=== PATIENT | male | born 1960 | race African-American/Black ===

== ENCOUNTER 2016-11-06 16:59 | Inpatient (IN) ==
[2016-11-06] MEDS ORDERED: IBUPROFEN 800 MG TABLET PO STA (17:35)
--- NOTE | 2016-11-06 17:36 | Emergency Department Note ---
Arrival - Arrival Chief Complaint: Upper Respiratory Stated Complaint: Coughing,fever,congestion with thick greenish mucu ED Nursing Triage Note: C/o productive cough, runny nose, congestion, subjective fever-onset one week ago. Unsure of how high fever was. Mode of Arrival: Ambulatory Limitations: No Limitations Source: Patient, RN Notes Reviewed Time Seen by Provider: 11/06/16 17:34 - History of Present Illness HPI Narrative: History of Present Illness 55-year-old black male presents to ED with CC of URI symptoms x 2 weeks. Symptoms present: Fever; subjective, temp in triage 99.9, cough, runny nose, congestion, pleuritic type pain, and shortness of breath with exertion, O2 sat 95% in triage Able to tolerate fluids by mouth: Yes PCP: None PMHx: None Allergies/Adverse Reactions: Allergies Allergy/AdvReac Type Severity Reaction Status Date / Time No Known Allergies Allergy Verified 11/06/16 17:10 Home Medications: Home Medications Medication Instructions Recorded Confirmed Type No Known Home Medications [No 11/06/16 11/06/16 History Known Home Medications] Review of System - Review of System 12 point system: reviewed and no additional remarkable complaints except as stated - Review of System Head/Ears/Nose/Throat: Present: see HPI, nasal drainage, other Respiratory: Present: as per HPI, cough, other (Short of breath with exertion) Cardiovascular: Present: as per HPI, chest pain (Lower right ribs) Medical,Surgical,& Family Hx - Medical History Medical History: noncontributory - Social History Smoking Status: Former smoker Frequency of Alcohol Use: None Type of Drug Use: None Exam Physical Examination: - General General appearance: alert, in no apparent distress - Head Head exam: Present: atraumatic, normocephalic, normal inspection - Eye Eye exam: Present: normal appearance, PERRL, no conjunctival injection - ENT ENT exam: Present: mucous membranes moist - Expanded ENT Exam External ear exam: Present: normal external inspection TM/Canal exam: no erythema: Right/Left TM Nose exam: no sinus tenderness, no nasal drainage. Negative: nasal deviation Mouth exam: Present: normal external inspection Teeth exam: Present: normal inspection, Throat exam: Present: tonsillar erythema. Absent: Tonsillar exudate - Neck Neck exam: Present: normal inspection, full ROM, no lymphadenopathy. Absent: tenderness, meningismus - Chest Chest inspection: Present: normal inspection, symmetric chest wall rise, area of pleuritic pain nontender to palpation - Respiratory Respiratory exam: Breath sounds decreased in right upper lobe, Scattered rales. Absent: respiratory distress, wheezes - Cardiovascular Cardiovascular exam: Present: regular rate, normal rhythm, normal heart sounds - Neurological Exam Neurological exam: Present: alert, oriented X3 - Psychiatric Psychiatric exam: Present: normal affect, normal mood - Skin Skin exam: Present: warm, dry, intact Vital Signs: Vital Signs Temperature 98.8 F 11/07/16 00:00 Pulse Rate 70 11/07/16 00:00 Respiratory Rate 21 11/07/16 00:00 Blood Pressure 111/72 11/07/16 00:00 O2 Sat by Pulse Oximetry 90 L 11/07/16 00:00 Course - Reevaluation(s) Time: 18:30 (O2 Sat 88% on room air at rest. Oxygen applied @2L BNC.) Time: 19:00 (CXR results given to patient and girlfriend. Plan for hospitalist to assess for possible admission given.) - Consultations Time: 18:45 (Hospitalist service notified of pt presence and status. ) Time: 19:15 (Dr. Martinez here to evaluate patient. Further orders received. ) Time: 19:50 (Dr. Martinez returned to see patient. Will admit.) Procedures - Smoking Cessation Time Spent Discussing Smoking Cessation w/Patient (Minutes): 00:10 (Pt encouraged to continue smoking cessation.) Patient Acknowledges Need for Cessation: Yes Additional Comments: 80pack year smoking history. Results - Labs CBC & BMP: 11/06/16 19:06 11/06/16 19:06 Lab Results: I have reviewed the patients labs Labs: Laboratory Tests 11/06/16 19:06 AST 33 ALT 19 Alkaline Phosphatase 71 Total Protein 7.8 Albumin 3.1 L Globulin 4.7 H Laboratory Tests 11/06/16 19:06 Total Creatine Kinase 529 H Troponin I < 0.015 Laboratory Tests 11/06/16 19:06 ABG pH 7.437 ABG pCO2 36.5 ABG pO2 58.5 L ABG HCO3 24.1 ABG Total CO2 25.2 ABG O2 Saturation 92.0 L ABG Base Excess 0.3 - Impressions CXR: Extensive bullous emphysema with air-fluid levels within several of the findings in the mid to lower right mid-lower lung zone. This finding could be related possible infected bulla, lung abscess, cavitary masses, etc. Asymmetric 37 mm noncalcified subpleural nodular density in the lateral right midlung zone. Follow-up chest x-ray or CT may be helpful for further evaluation. CT Chest: Extensive paraseptal emphysema with complex right loculated pleural effusion or fluid in the bullous findings extending from the right lung apex to the right lateral mid chest location. This finding can be seen with infectious process/empyema with additional significant infiltration, honeycombing, bronchiectasis, and atelectasis in the right upper lobe and right middle lobe. Evidence of old healed granulomatous disease with possible superimposed active granulomatous disease. It is difficult to exclude underlying masses with the extensive findings. Renal cysts. Follow-up recommended. - Diagnostic Findings Procedure: Chest x-ray: report reviewed by me, image reviewed by me (See Impression above.), CT - chest: report reviewed by me, image reviewed by me Disposition Clinical Impression: Bullous emphysema, Shortness of breath Case discussed with: patient, patient's family Disposition: Still a Patient Condition: Stable Time of Disposition: 19:50
[2016-11-06] MEDS ORDERED: IBUPROFEN 400 MG TABLET ONE (17:38)
--- NOTE | 2016-11-06 18:28 | XRay Report ---
XR chest 2V Date: 11/06/2016 5:42 PM History: Cough Comparison: None Technique: PA and lateral chest Findings: The heart is normal in size. Evidence of extensive bullous emphysema especially in the right lung. There are air-fluid levels within several findings in the mid to lower lung zone. Increased density at the level of right hilum and laterally in the right midlung zone. Localized eventration of the left hemidiaphragm. Degenerative changes noted. Impression: Extensive bullous emphysema with air-fluid levels within several of the findings in the mid to lower right mid-lower lung zone. This finding could be related possible infected bulla, lung abscess, cavitary masses, etc. Asymmetric 37 mm noncalcified subpleural nodular density in the lateral right midlung zone. Follow-up chest x-ray or CT may be helpful for further evaluation. PROCEDURE INTERPRETED AT [facility] DEPARTMENT OF RADIOLOGY Final Report Signed by: Dr. Natalee Scruggs
[2016-11-06 19:23] LABS: Basophils # 0.1 10*3/uL (0.0-0.2); Eosinophils # 0.3 10*3/uL (0.0-0.87); Eosinophils % 2.3 % (0.00-10.9); Hematocrit 43.5 VOL% (42.0-52.0); Hemoglobin 14.8 GM/DL (14.0-18.0); Immature Granulocytes % 0.3 %; Immature Granulocytes Absolute 0.04 #; Lymphocytes # 2.7 10*3/uL (1.4-4.0); Lymphocytes % 22.2 % (21.2-54.2); Mean Corpuscular Hemoglobin 28 PG (27-34); Mean Corpuscular Volume 82.2 FL (87-102); Mean Platelet Volume 9.1 FL (9.6-12.0); Monocytes % 8.5 % (1.7-12.7); Neutrophils # 8.1 10*3/uL (1.4-7.4); Neutrophils % 65.7 % (38.7-73.9); Platelet Count 324 T/CUMM (130-400); Red Blood Count 5.29 MC/CUMM (3.8-5.5); Red Cell Distribution Width 12.9 % (9.3-17.3); White Blood Count 12.3 T/CUMM (4-12)
[2016-11-06 19:45] LABS: Lactic Acid 0.6 MMOL/L (0.4-2.0)
[2016-11-06 19:47] LABS: Alanine Aminotransferase 19 U/L (16-61); Albumin 3.1 G/DL (3.4-5.0); Alkaline Phosphatase 71 U/L (45-117); Aspartate Amino Transferase 33 U/L (0-37); Blood Urea Nitrogen 10 MG/DL (7-18); Calcium 8.8 MG/DL (8.5-10.1); Glucose 103 MG/DL (74-106); Potassium 3.9 MMOL/L (3.5-5.1); Sodium 136 MMOL/L (136-145); Total Protein 7.8 G/DL (6.4-8.3); Troponin I Only < 0.015 NG/ML (0.00-0.045)
--- NOTE | 2016-11-06 20:06 | Hospitalist History & Physical ---
Assessment and Plan (1) Bullous emphysema Status: Acute Assessment and plan: The patient is admitted hospital with abnormal chest x-ray. The patient will start on INH and rifampin and have respiratory precautions and the negative pressure room. We will obtain pulmonary consultation and CT scan of chest. Current Visit: Yes History of Present Illness Chief complaint: Cough and pleurisy History of present illness: Mr. Galvez is a 55 year old male with complaint of pleurisy on the right anterior chest. The patient has complained of cough and congestion with minimum sputum production. The patient was incarcerated as a youthful offender. He was not told about tuberculosis at that time. The patient's mother states that the mother was treated for tuberculosis 18 months ago and took pills for 6 months at the health department. She states that the patient was likely infected at that time but did not take appropriate medications. The patient states that he was diagnosed with tuberculosis at the age of 15 or 16 and took medication at that time. The patient's history does not appear to be reliable. The story he tells changes from one telling to the next. Home Medications Medication Instructions Recorded Confirmed Type No Known Home Medications [No 11/06/16 11/06/16 History Known Home Medications] Allergies Allergy/AdvReac Type Severity Reaction Status Date / Time No Known Allergies Allergy Verified 11/06/16 17:10 Medical,Surgical,& Family Hx - Medical History Respiratory: History of: COPD - Family History Family History: Reports;: Family Hypertension - Social History Smoking Status: Former smoker Frequency of Alcohol Use: None Type of Drug Use: None Marital Status: Single Lives With:: Significant Other Functional capacity: independent ambulation 12 point system: reviewed and no additional remarkable complaints except as stated Exam - Constitutional Vitals: Period Temp Pulse Resp BP Sys/Bright Pulse Ox Last 24 Hr 99.9 F 93 20-20 113/76 95 Exam: Constitutional System: Mild distress. No tremulousness. Head: Normocephalic, atraumatic. Ears, Nose and Throat System: No evidence of Otitis or Mastoiditis. No epistaxis or discharge Eyes System: Pupils equal, round, and reactive. Extraocular muscles intact. Neck: Supple, without adenopathy, No jugular venous distention. No thyromegaly , neck mass, or prior surgery apparent. Respiratory System: Chest decreased lung sounds right upper lobe with few rhonchi right anterior mid to lower lung to auscultation. There is air trapping on both sides Cardiovascular System: Heart with regular rate and rhythm. No murmur. GI System: Abdomen soft, nontender. Normo active bowel sounds present. Musculoskeletal System: limbs with no pedal edema. Full distal pulses. Neurological System: No discernable sensory deficit. No aphasia Psychiatric System: Conversation is rational Results - Labs CBC & BMP: 11/06/16 19:06 11/06/16 19:06 Lab Results: I have reviewed the past 24 hour labs - Diagnostic Findings Procedure: Chest x-ray: image reviewed by me, report reviewed by me (Bullous emphysema worse on the right with some air-fluid level in 1 of the bullae in the right mid lung field with fluid in the fissure leading to the area of the right anterior chest where the patient has pleurisy.)
[2016-11-06 20:33] LABS: ABG Base Excess 0.3 MMOL/L (-2.5-2.5); ABG HCO3 24.1 MMOL/L (20-26); ABG PCO2 36.5 MM HG (35-48); ABG PH 7.437 (7.35-7.45); ABG PO2 58.5 MM HG (80-95); ABG TCO2 25.2 MMOL/L (23-27)
--- NOTE | 2016-11-06 20:44 | CT Report ---
Exam: CT chest w con Date: 11/06/2016 7:28 PM Comparison: Chest x-ray 11/06/2016 Indication: Cough, abnormal chest x-ray Technique:[Sequential axial scans of the chest were obtained following the injection of 80 cc Omnipaque 350. Coronal and sagittal 2-D reconstructions were obtained. Total DLP: 212.10 Findings: The heart is normal in size with no pericardial effusion. Minimal shift of the mediastinum to the right with mediastinal right hilar nodes which are borderline in size to minimally enlarged. Calcified nodes are identified. Renal cysts are noted with incomplete evaluation of 52 mm finding in the midpole of the left kidney. Degenerative changes are noted. Extensive paraseptal emphysema the findings are more prominent on the right. There is associated loculated appearing fluid posterior laterally in the right upper lobe location with minimal air within this finding. The finding measures 32 mm in depth at the right lung apex. Atelectasis/infiltration with honeycombing and bronchiectasis which appears most pronounced in the right upper lobe and right middle lobe. Impression: Extensive paraseptal emphysema with complex right loculated pleural effusion or fluid in the bullous findings extending from the right lung apex to the right lateral mid chest location. This finding can be seen with infectious process/empyema with additional significant infiltration, honeycombing, bronchiectasis, and atelectasis in the right upper lobe and right middle lobe. Evidence of old healed granulomatous disease with possible superimposed active granulomatous disease. It is difficult to exclude underlying masses with the extensive findings. Renal cysts. Follow-up recommended. This CT exam was performed using one or more the following dose reduction techniques: Automated exposure control, adjustment of the MA and/or KV according to patient size, or use of iterative reconstruction technique. PROCEDURE INTERPRETED AT [facility] DEPARTMENT OF RADIOLOGY Final Report Signed by: Dr. Natalee Scruggs
[2016-11-06] MEDS ORDERED: ONDANSETRON 4 MG/2 ML VIAL IV PRN (21:02)
[2016-11-06] MEDS: ISONIAZID 300 MG TABLET PO SCH (21:55)
[2016-11-06] MEDS: RIFAMPIN 300 MG CAPSULE PO SCH (21:55)
[2016-11-06] MEDS: ENOXAPARIN 40 MG/0.4 ML SYRINGE SUBCUT SCH (21:55)
--- NOTE | 2016-11-07 06:38 | EKG Report ---
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
--- NOTE | 2016-11-07 08:46 | Pulmonology Consult Note ---
History of Present Illness Chief complaint: Chest pain. Shortness of breath. Abnormal chest x-ray History of present illness: Mr. Galvez is a 55 year old black male whom I been asked to see in pulmonary consultation. This patient is admitted with right chest pain. This was over his lower ribs in the anterior axillary line he says he has had some shortness of breath. When asked if he had any sputum he grudgingly said yes but he has not looked at this. When I asked him if he had any fever and chills he should his head vigorously said yes. It was hard to get any real details and I am not sure this patient is straightforward with me. See Dr. Martinez's history. This patient was incarcerated as a youthful offender. He was not told of having any tuberculosis at that time. His mother had tuberculosis 18 months ago and took pills for 6 months from the health department and she implied that the patient refused to take the pills. The mother upon that the patient was infected at the time she took the medicine. Patient also told Dr. Martinez that he was diagnosed with tuberculosis at age 15 or 16 and took medicines at that time. Dr. Martinez noted that the patient's history was not reliable and that what he told was changed from 1 minute to the next. The patient apparently is a in another city. His girlfriend was told the nursing staff not to give the patient any pain medicines because he has a history of addiction pain medicine. The remainder the review of systems which is unreliable is not positive. Allergies. None Home medicines. None. Medical history. Possible past history of tuberculosis. See review of systems. Social history. Patient is a smoker who says he quit 4 months ago. He denied alcohol. 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 Said he last worked about 4 weeks ago for [employer] Family history. Positive for high blood pressure Chest x-ray. My interpretation. Heart size is normal. Pulmonary arteries are upper limits of normal. There is calcification in the right hilar area and to a lesser degree in the left hilar area. These calcifications appear to be benign. The mediastinum is normal. The left lung field shows calcification with interstitial scarring surrounding the left hilum. This appears to be old and active disease. In the right lung there is a huge right upper lung bullous that occupies about 55% of the right chest. There is an air-fluid level in the inferior aspect of this thin-walled bolus. The air-fluid level is located anteriorly. There is another large thin-walled cystic area in the right middle lung with an air-fluid level. 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 No bony lesions are noted. CT scan of the chest (my interpretation) shows extensive bullous disease in the left lung occupying well over 50% of the lung. In the right lung there is dense apical scarring that extends posteriorly for distance. This has the appearance of fluid but is not fluid. Greater than 70% of the right lung is involved with bullous emphysema. There is an infiltrate in the right middle lung. This abuts against the bulla and gives a appearance of all small amount of fluid. There is a second infiltrate and a thin wall bolus in the lateral aspect of the left lower lung. No endobronchial lesions are seen and I do not see any parenchymal lesions to suggest cancer. Lab. White count is 12,300 with 66 segs 22 lymphs. H&H is 14.8/43.5. Electrolytes are normal. Creatinine is 1.1. BUN is 10. Creatinine is elevated 529. Total protein is 7.8. Albumin is low at 3.1. Globulin is elevated at 4.7. Liver function tests are normal. Calcium is normal. Lactic acid is normal. No other lab is available. Labs been reviewed. Physical exam. Vital signs. See below. Highest temp is been 99.9. Psychiatric. Oriented 3. Has a history that varies in time Neurologic. Cranial nerves are intact. Patient moves all 4 extremities. Face. Symmetrical. Lips and tongue are not swollen. Neck. No meningismus. Chest. Very slight large airway congestion. No wheezing. Patient is tender over the seventh eighth and ninth ribs on the right in the anterior axillary line. This reproduces her chest pain that he complains of. Heart no gallop Fingers. Clubbed. Patient says they have always been that way in this way his father's fingers look. Lower extremities. No edema. Nothing to suggest deep venous thrombophlebitis. Lymphatics. No submandibular cervical supraclavicular adenopathy. The remainder the physical exam is noncontributory. Impression. 1. Severe bullous emphysema. 2. 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 This is just as likely to be bacteria as tuberculosis. Patient gives a history of having tuberculosis as a teenager and taking treatment for it. 3. Tobacco abuse 4. History of drug abuse according to girlfriend 5. 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 Possibly on the basis of hypoxic lung disease Plan. 1. Levaquin. 2. Cleocin. 3. Induced sputum's for AFB. See orders 4. Sputum for Gram stain culture and sensitivity 5. Sputum for fungal stains and cultures. Look for aspergillosis. 6. Pro-calcitonin level. 7. Inhalation therapy 8. I agree with TB medicines 9. Follow-up lab and chest x-ray. 10. Discontinue QuantiFERON. This will not be helpful. 11. Dr. Martinez and I have discussed and reviewed the case and coordinated our care. 12. See orders. Home Medications Medication Instructions Recorded Confirmed Type No Known Home Medications [No 11/06/16 11/06/16 History Known Home Medications] Allergies Allergy/AdvReac Type Severity Reaction Status Date / Time No Known Allergies Allergy Verified 11/06/16 17:10 Exam (Pulmonay) H&P - Constitutional Vitals: Period Temp Pulse Resp BP Sys/Bright Pulse Ox Last 24 Hr 98.6 F-99.9 F 70-93 16-25 110-121/68-81 90-95 Medical,Surgical,& Family Hx - Medical History Respiratory: History of: COPD Genitourinary: History of: Problems (urinary retention) - Surgical History Cardiac Surgeries: Patient Denies: Cardiac Catheterization Abdominal Surgeries: Surgical HX of: Appendectomy - Family History Family History: Reports;: Family Hypertension - Social History Smoking Status: Former smoker Frequency of Alcohol Use: None Type of Drug Use: None Results - Labs CBC & BMP: 11/06/16 19:06 11/06/16 19:06
[2016-11-07] MEDS ORDERED: SODIUM CHLORIDE 0.45% 1,000 ML IV SCH (09:00)
[2016-11-07] MEDS: RIFAMPIN 300 MG CAPSULE PO SCH ×2 (09:05→21:04)
[2016-11-07] MEDS: PANTOPRAZOLE 40 MG TABLET PO SCH (09:05)
[2016-11-07] MEDS: ISONIAZID 300 MG TABLET PO SCH (09:07)
[2016-11-07] MEDS: DICLOFENAC 1.3% PATCH 5/PACK TRANSDERM SCH ×2 (09:53→21:03)
[2016-11-07] MEDS: CLINDAMYCIN INJ 300 MG in PREMIX 1 EACH IV SCH ×3 (11:12→22:51)
[2016-11-07] MEDS: LEVOFLOXACIN INJ 500 MG in PREMIX 1 EACH IV SCH (11:43)
[2016-11-07] MEDS: SODIUM CHLORIDE 3% 4 ML NEB RESP TX SCH ×2 (14:10→19:15)
[2016-11-07] MEDS: ACETAMINOPHEN 325 MG TABLET PO PRN (14:12)
--- NOTE | 2016-11-07 14:36 | Hospitalist Progress Note ---
Assessment and Plan (1) Bullous emphysema Status: Acute Assessment and plan: The patient is admitted hospital with abnormal chest x-ray. The patient was prescribed INH and rifampin and we began respiratory precautions and the negative pressure room. Dr. Clement has been consulted and recommended IV antibiotics with clindamycin and Levaquin. Dr. Clement has requested induce sputum testing for TB. CT scan of chest reveals bullous emphysema with some cavitation. Etiology of the patient's lung infection is uncertain at this time. Current Visit: Yes Hospitalist: Subjective Interval history: Mr. Galvez is resting quietly in his room today. He has less cough today. The patient has less discomfort in the right chest. I coordinated care with Dr. Clement. Exam - Constitutional Vitals: Period Temp Pulse Resp BP Sys/Bright Pulse Ox Last 24 Hr 98.6 F-100.0 F 70-93 16-25 110-121/68-81 90-95 Exam: Constitutional System: Minimal distress. No tremulousness. Head: Normocephalic, atraumatic. Ears, Nose and Throat System: No evidence of Otitis or Mastoiditis. No epistaxis or discharge Eyes System: Pupils equal, round, and reactive. Extraocular muscles intact. Neck: Supple, without adenopathy, No jugular venous distention. No thyromegaly , neck mass, or prior surgery apparent. Respiratory System: Chest decreased lung sounds right upper lobe with few rhonchi right anterior mid to lower lung to auscultation. There is air trapping on both sides Cardiovascular System: Heart with regular rate and rhythm. No murmur. GI System: Abdomen soft, nontender. Normo active bowel sounds present. Musculoskeletal System: limbs with no pedal edema. Full distal pulses. Neurological System: No discernable sensory deficit. No aphasia Psychiatric System: Conversation is rational Results - Labs CBC & BMP: 11/06/16 19:06 11/06/16 19:06 Lab Results: I have reviewed the past 24 hour labs
[2016-11-07] MEDS: ENOXAPARIN 40 MG/0.4 ML SYRINGE SUBCUT SCH (21:04)
[2016-11-08] MEDS: ACETAMINOPHEN 325 MG TABLET PO PRN (01:42)
[2016-11-08] MEDS: CLINDAMYCIN INJ 300 MG in PREMIX 1 EACH IV SCH ×4 (05:16→22:09)
--- NOTE | 2016-11-08 08:15 | XRay Report ---
History: Bullous emphysema. Chronic coughing Date: 11/08/2016 Study: Chest x-ray AP portable Comparison exam: November 06, 2016 The cardiomediastinal silhouette is stable. The pulmonary vasculature is not engorged. Severe emphysematous changes are noted in the upper lungs, right more so than left. There is some continued asymmetric patchy infiltrate in the right mid to lower lung more medially. The fluid level noted in the mid to lower right hemithorax is not seen on today's study. There is no increasing pleural effusion. Osseous structures are unchanged. Impression: Continued infiltrate in the right mid to lower lung, presumably pneumonia. The fluid level noted in the right mid to lower hemithorax is no longer seen. Prominent emphysematous changes as before PROCEDURE INTERPRETED AT [facility] DEPARTMENT OF RADIOLOGY Final Report Signed by: Dr. Karin Warner
[2016-11-08] MEDS ORDERED: ALBUTEROL/IPRATROPIUM 3 ML NEB RESP TX PRN (08:41)
--- NOTE | 2016-11-08 08:41 | Pulmonology Progress Note ---
Pulmonary - PN: Subj Interval history: Is a 55-year-old black male whom I saw in pulmonary consultation 11/07/2016. My impressions were. 1. Severe bullous emphysema. 2. 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 This is just as likely to be bacteria as tuberculosis. Patient gives a history of having tuberculosis as a teenager and taking treatment for it. 3. Tobacco abuse 4. History of drug abuse according to girlfriend 5. 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 Possibly on the basis of hypoxic lung disease 11/08/2016. Sputum for AFB and fungus are negative. Gram stain showed no organisms which surprises me. Today's chest x-ray is the same. There is a huge right upper lung bullous to compresses her right middle lung and right lower lung. There are infiltrates surrounding the bullae with thin faustin and a small air-fluid level in the right middle lung and also in the medial basal segment of the right lower lung. The left lung shows some mild increase interstitial markings in the perihilar area these are not infiltrates in her old scars. Labs been reviewed Medicines been reviewed Physical exam. Vital signs. See below Psychiatric. Not a reliable historian. Neurologic. Cranial nerves are intact. Long track motor functions intact Chest. Mild large airway congestion. No wheeze. Heart. No gallop Abdomen nondistended nontender positive bowel sounds Extremities none to suggest deep venous thrombophlebitis next lymphatics no submandibular cervical supraclavicular or epitrochlear adenopathy next neck. Symmetrical no meningismus Face symmetrical. No swelling of the lips and tongue. The remainder the exam is negative Plan. 11/07/2016 1. Levaquin. 2. Cleocin. 3. Induced sputum's for AFB. See orders 4. Sputum for Gram stain culture and sensitivity 5. Sputum for fungal stains and cultures. Look for aspergillosis. 6. Pro-calcitonin level. 7. Inhalation therapy 8. I agree with TB medicines 9. Follow-up lab and chest x-ray. 10. Discontinue QuantiFERON. This will not be helpful. 11. Dr. Martinez and I have discussed and reviewed the case and coordinated our care. 12. See orders. 11/08/2016. 1. See my note above. 2. Continue present therapy. I suspect this is going to returning officer to be a bacterial infection. Exam (Progress Note) - Constitutional Vitals: Period Temp Pulse Resp BP Sys/Bright Pulse Ox Last 24 Hr 98.7 F-100.0 F 73-101 15-27 103-127/59-88 88-95 Results - Labs CBC & BMP: 11/06/16 19:06 11/06/16 19:06
[2016-11-08] MEDS: SODIUM CHLORIDE 3% 4 ML NEB RESP TX SCH (08:45)
[2016-11-08] MEDS: cefTRIAXone 1,000 MG in SODIUM CHLORIDE 0.9% 100 ML IV SCH (08:55)
[2016-11-08] MEDS: RIFAMPIN 300 MG CAPSULE PO SCH ×2 (08:55→20:28)
[2016-11-08] MEDS: PANTOPRAZOLE 40 MG TABLET PO SCH (08:55)
[2016-11-08] MEDS: ISONIAZID 300 MG TABLET PO SCH (08:55)
[2016-11-08] MEDS: DICLOFENAC 1.3% PATCH 5/PACK TRANSDERM SCH ×2 (08:56→20:28)
--- NOTE | 2016-11-08 09:12 | Hospitalist Progress Note ---
Assessment and Plan (1) Bullous emphysema Status: Chronic Current Visit: Yes (2) Shortness of breath Status: Acute Assessment and plan: Continue with broad-spectrum antibiotics. As needed nebulized treatments. Sputum cultures Current Visit: Yes (3) Hypoxia Status: Acute Assessment and plan: Continue with neb treatments. Nasal cannula 3 L. Current Visit: Yes (4) Tobacco use Status: Chronic Assessment and plan: Patient recently stopped 4 months ago Current Visit: Yes Hospitalist: Subjective Interval history: The patient is resting visiting with his girlfriend. Did have a low-grade temperature last night. No fevers this morning. He remains on broad-spectrum antibiotics. Family is requesting a urinalysis as well as neb treatments. Of note the patient has a history of tobacco use but stopped smoking approximately 4 months ago. He remains on nasal cannula with sats of approximately 92%. His initial sputum cultures are negative. He still has 2 other cultures that are pending. Exam - Constitutional Vitals: Period Temp Pulse Resp BP Sys/Bright Pulse Ox Last 24 Hr 98.7 F-100.0 F 73-101 15-27 103-127/59-88 88-95 General appearance: normal weight - Head Head exam: Present: normal inspection - ENT ENT exam: Present: normal exam - Respiratory Respiratory exam: Present: clear to auscultation bilaterally - Cardiovascular Cardiovascular exam: Present: regular rate and rhythm - GI/Abdominal GI/Abdominal exam: Present: normal bowel sounds - Extremities Exam Extremities exam: Present: other (Clubbing noted on the digits) - Neurological Exam Neurological exam: Present: alert, oriented X3 - Psychiatric Psychiatric exam: Present: normal affect, normal mood - Skin Skin exam: Present: normal color Results - Labs CBC & BMP: 11/06/16 19:06 11/06/16 19:06
[2016-11-08] MEDS: LEVOFLOXACIN INJ 500 MG in PREMIX 1 EACH IV SCH (09:37)
[2016-11-08 10:03] LABS: Apearance,Urine CLEAR (Clear); Bilirubin,Urine Negative (Negative); Blood, Urine Negative (Negative); Glucose,Urine (UA) Negative (Negative); Ketones,Urine Negative (Negative); Mucus,Urine Occasional /LPF (Occasional); Nitrite,Urine Negative (Negative); Protein,Urine Negative; RBC,Urine 2 /HPF (0-4); Squamous Epithelial Cell,Urine Occasional /HPF (0-10); Urine Color Amber (Yellow); Urine Specific Gravity 1.008 (1.001-1.035); WBC,Urine 14 /HPF (0-6)
[2016-11-08] MEDS: ENOXAPARIN 40 MG/0.4 ML SYRINGE SUBCUT SCH (20:28)
[2016-11-08] MEDS: ZALEPLON 5 MG CAPSULE PO PRN (22:09)
[2016-11-09 03:15] LABS: Basophils # 0.2 10*3/uL (0.0-0.2); Basophils % 1.2 % (0.0-0.8); Eosinophils # 0.4 10*3/uL (0.0-0.87); Eosinophils % 3.5 % (0.00-10.9); Hematocrit 44.9 VOL% (42.0-52.0); Hemoglobin 15.1 GM/DL (14.0-18.0); Immature Granulocytes % 0.6 %; Immature Granulocytes Absolute 0.08 #; Lymphocytes # 2.9 10*3/uL (1.4-4.0); Lymphocytes % 22.7 % (21.2-54.2); Mean Corpuscular HGB Conc 33.6 GM/DL (32-36); Mean Corpuscular Hemoglobin 28 PG (27-34); Mean Corpuscular Volume 82.7 FL (87-102); Mean Platelet Volume 9.3 FL (9.6-12.0); Neutrophils # 8.1 10*3/uL (1.4-7.4); Platelet Count 384 T/CUMM (130-400); Red Blood Count 5.43 MC/CUMM (3.8-5.5); White Blood Count 12.6 T/CUMM (4-12)
[2016-11-09] MEDS: CLINDAMYCIN INJ 300 MG in PREMIX 1 EACH IV SCH ×4 (05:42→23:33)
--- NOTE | 2016-11-09 08:13 | Hospitalist Progress Note ---
Assessment and Plan (1) Bullous emphysema Status: Chronic Current Visit: Yes (2) Shortness of breath Status: Acute Assessment and plan: History of pneumonia. Hypoxia has improved. On no oxygen therapy at this time sats are 91%. We will transfer to the floor. Current Visit: Yes (3) Hypoxia Status: Resolved Assessment and plan: This issue has resolved. He is on no oxygen therapy with sats of 91%. Continue with neb treatments. Current Visit: Yes (4) Tobacco use Status: Chronic Assessment and plan: Patient recently stopped 4 months ago Current Visit: Yes (5) Pneumonia Status: Acute Assessment and plan: Continue with broad-spectrum antibiotics for this patient. He does not require oxygen therapy at this time. AFB stains have been negative. Patient does have evidence of emphysematous changes by x-ray and CT scan. Current Visit: Yes Hospitalist: Subjective Interval history: The patient is resting comfortably. He is now off oxygen therapy and sats about 90-91%. He has had 3 negative AFB sputum cultures. No fevers or chills. He has been hemodynamically stable. On yesterday at the request of the family members he had a urinalysis that showed small leuk esterase. He is on antibiotics for coverage. His white count has been 12.6 over the last 2 days[address] Have discussed with Dr. Matias regarding isolation status and we both agree that with 3 negative AFBs we will be able to take patient off isolation and be able to transfer him to the floor. Since admission patient has also had a CT of the chest that shows paraseptal emphysematous changes and healed granuloma changes. His follow-up chest x-ray is stable. And again follow-up cultures have been negative. COPD. Patient with a history of tobacco use stop smoking approximately 4 to half months ago. Pneumonia on broad-spectrum antibiotics. At this time he is off oxygen therapy. Sats are 90%. Urinary tract infection is on broad-spectrum antibiotics. Hemodynamically stable. We will transfer to the floor. Exam - Constitutional Vitals: Period Temp Pulse Resp BP Sys/Bright Pulse Ox Last 24 Hr 98.5 F-99.2 F 75-97 14-24 96-139/64-88 91-95 General appearance: normal weight - Head Head exam: Present: normal inspection - Eye Eye exam: Present: conjunctival injection - ENT ENT exam: Present: normal exam - Neck Neck exam: Present: normal inspection - Respiratory Respiratory exam: Present: clear to auscultation bilaterally - Cardiovascular Cardiovascular exam: Present: regular rate and rhythm - GI/Abdominal GI/Abdominal exam: Present: normal bowel sounds - Extremities Exam Extremities exam: Present: normal inspection - Neurological Exam Neurological exam: Present: alert, oriented X3, CN II-XII intact - Skin Skin exam: Present: normal color, warm Results - Labs CBC & BMP: 11/09/16 02:33 11/06/16 19:06
[2016-11-09] MEDS: ISONIAZID 300 MG TABLET PO SCH (08:18)
[2016-11-09] MEDS: RIFAMPIN 300 MG CAPSULE PO SCH (08:18)
[2016-11-09] MEDS: PANTOPRAZOLE 40 MG TABLET PO SCH (08:18)
[2016-11-09] MEDS: DICLOFENAC 1.3% PATCH 5/PACK TRANSDERM SCH ×2 (08:30→23:25)
[2016-11-09] MEDS: cefTRIAXone 1,000 MG in SODIUM CHLORIDE 0.9% 100 ML IV SCH (08:31)
--- NOTE | 2016-11-09 09:27 | XRay Report ---
History: Bullous emphysema Date: 11/09/2016 Study: Chest x-ray AP portable Comparison exam: 11/08/2016 The cardiomediastinal silhouette is stable. The pulmonary vasculature is not engorged. Prominent changes of bullous emphysema are noted in the mid to upper lungs bilaterally as before, right more so than left. Infiltrate in the right mid to lower lung medially is slightly improved. There is slightly increased patchy infiltrate in the left lung base. There is no pleural effusion. Osseous structures are similar. Impression: Slightly improved aeration in the right lung base compared to the previous study. Slightly increased left basilar infiltrate which could represent pneumonia. Prominent changes of bullous emphysema. Otherwise unchanged PROCEDURE INTERPRETED AT [facility] DEPARTMENT OF RADIOLOGY Final Report Signed by: Dr. Karin Warner
[2016-11-09] MEDS: LEVOFLOXACIN INJ 500 MG in PREMIX 1 EACH IV SCH (09:47)
--- NOTE | 2016-11-09 11:57 | Pulmonology Progress Note ---
Pulmonary - PN: Subj Interval history: Is a 55-year-old black male whom I saw in pulmonary consultation 11/07/2016. My impressions were. 1. Severe bullous emphysema. 2. 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 This is just as likely to be bacteria as tuberculosis. Patient gives a history of having tuberculosis as a teenager and taking treatment for it. 3. Tobacco abuse 4. History of drug abuse according to girlfriend 5. 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 Possibly on the basis of hypoxic lung disease 11/08/2016. Sputum for AFB and fungus are negative. Gram stain showed no organisms which surprises me. Today's chest x-ray is the same. There is a huge right upper lung bullous to compresses her right middle lung and right lower lung. There are infiltrates surrounding the bullae with thin faustin and a small air-fluid level in the right middle lung and also in the medial basal segment of the right lower lung. The left lung shows some mild increase interstitial markings in the perihilar area these are not infiltrates in her old scars. 11/09/2016. Today's chest x-ray is better. Previously noted right-sided infiltrates are better. I do not see any air-fluid levels. There is infiltration or scarring inferior to the left hilum and this is unchanged. There are multiple areas of calcification mixed in with this and I think most all of this is a scar. There is severe underlying bullous emphysema bilaterally but this is most prominent in the right upper lung. Overall this x- ray has improved. All of patient's sputum's are negative for acid-fast organisms. There have been no positive bacterial results. The patient did did grow some Sabina. This is not a Sabina pneumonia. White blood cell count is 12,664 segs 23 lymphs [address] Wood Gomez and I have reviewed the case and we both think the patient is safe to move to the floor. We will however seek confirmation from the infectious disease control nurse. I think the patient's antituberculous medicines can be stopped. I think this man will be ready for discharge in the near future. He has improved on Levaquin and Cleocin so I would suggest that we leave him on Levaquin 500 mg daily for 2 weeks and Cleocin 300 mg p.o. 3 times daily for 3 weeks when he goes home. He will not need a follow-up appointment to see me. Cold agglutinins are negative. Legionella titer has not been reported. Labs been reviewed Medicines been reviewed Physical exam. Vital signs. See below Psychiatric. Not a reliable historian. Neurologic. Cranial nerves are intact. Long track motor functions intact Chest. Mild large airway congestion. No wheeze. Heart. No gallop Abdomen nondistended nontender positive bowel sounds Extremities none to suggest deep venous thrombophlebitis next lymphatics no submandibular cervical supraclavicular or epitrochlear adenopathy next neck. Symmetrical no meningismus Face symmetrical. No swelling of the lips and tongue. The remainder the exam is negative Plan. 11/07/2016 1. Levaquin. 2. Cleocin. 3. Induced sputum's for AFB. See orders 4. Sputum for Gram stain culture and sensitivity 5. Sputum for fungal stains and cultures. Look for aspergillosis. 6. Pro-calcitonin level. 7. Inhalation therapy 8. I agree with TB medicines 9. Follow-up lab and chest x-ray. 10. Discontinue QuantiFERON. This will not be helpful. 11. Dr. Martinez and I have discussed and reviewed the case and coordinated our care. 12. See orders. 11/08/2016. 1. See my note above. 2. Continue present therapy. 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 11/09/2016. 1. See my note above. 2. Discontinue INH 3. Discontinue rifampin 4. Should be ready for discharge in the near future. Suggest Levaquin 500 mg daily for 14 days and Cleocin 300 mg p.o. 3 times daily for 14 days. 5. This patient does not need a follow-up appointment to see me Exam (Progress Note) - Constitutional Vitals: Period Temp Pulse Resp BP Sys/Bright Pulse Ox Last 24 Hr 98.5 F-99.2 F 75-97 18-24 96-139/64-91 90-95 Results - Labs CBC & BMP: 11/09/16 02:33 11/06/16 19:06
[2016-11-09] MEDS ORDERED: KETOROLAC 15 MG/1 ML VIAL IV PRN (18:35)
[2016-11-09] MEDS: ENOXAPARIN 40 MG/0.4 ML SYRINGE SUBCUT SCH (23:26)
[2016-11-09] MEDS: ZALEPLON 5 MG CAPSULE PO PRN (23:26)
[2016-11-10 05:22] LABS: Basophils # 0.2 10*3/uL (0.0-0.2); Basophils % 1.6 % (0.0-0.8); Eosinophils # 0.6 10*3/uL (0.0-0.87); Eosinophils % 5.3 % (0.00-10.9); Hematocrit 43.5 VOL% (42.0-52.0); Hemoglobin 14.4 GM/DL (14.0-18.0); Immature Granulocytes % 0.6 %; Immature Granulocytes Absolute 0.07 #; Lymphocytes # 2.7 10*3/uL (1.4-4.0); Lymphocytes % 23.8 % (21.2-54.2); Mean Corpuscular HGB Conc 33.1 GM/DL (32-36); Mean Corpuscular Hemoglobin 27 PG (27-34); Mean Corpuscular Volume 82.2 FL (87-102); Mean Platelet Volume 8.9 FL (9.6-12.0); Monocytes # 0.8 10*3/uL (0.11-0.8); Monocytes % 7.3 % (1.7-12.7); Neutrophils % 61.4 % (38.7-73.9); Platelet Count 385 T/CUMM (130-400); Red Blood Count 5.29 MC/CUMM (3.8-5.5); Red Cell Distribution Width 13.2 % (9.3-17.3); White Blood Count 11.4 T/CUMM (4-12)
[2016-11-10] MEDS: CLINDAMYCIN INJ 300 MG in PREMIX 1 EACH IV SCH ×2 (05:45→11:41)
--- NOTE | 2016-11-10 07:13 | Pulmonology Progress Note ---
Pulmonary - PN: Subj Interval history: Is a 55-year-old black male whom I saw in pulmonary consultation 11/07/2016. My impressions were. 1. Severe bullous emphysema. 2. 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 This is just as likely to be bacteria as tuberculosis. Patient gives a history of having tuberculosis as a teenager and taking treatment for it. 3. Tobacco abuse 4. History of drug abuse according to girlfriend 5. 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 Possibly on the basis of hypoxic lung disease 11/08/2016. Sputum for AFB and fungus are negative. Gram stain showed no organisms which surprises me. Today's chest x-ray is the same. There is a huge right upper lung bullous to compresses her right middle lung and right lower lung. There are infiltrates surrounding the bullae with thin faustin and a small air-fluid level in the right middle lung and also in the medial basal segment of the right lower lung. The left lung shows some mild increase interstitial markings in the perihilar area these are not infiltrates in her old scars. 11/09/2016. Today's chest x-ray is better. Previously noted right-sided infiltrates are better. I do not see any air-fluid levels. There is infiltration or scarring inferior to the left hilum and this is unchanged. There are multiple areas of calcification mixed in with this and I think most all of this is a scar. There is severe underlying bullous emphysema bilaterally but this is most prominent in the right upper lung. Overall this x- ray has improved. All of patient's sputum's are negative for acid-fast organisms. There have been no positive bacterial results. The patient did did grow some Sabina. This is not a Sabina pneumonia. White blood cell count is 12,664 segs 23 lymphs [address] Wood Gomez and I have reviewed the case and we both think the patient is safe to move to the floor. We will however seek confirmation from the infectious disease control nurse. I think the patient's antituberculous medicines can be stopped. I think this man will be ready for discharge in the near future. He has improved on Levaquin and Cleocin so I would suggest that we leave him on Levaquin 500 mg daily for 2 weeks and Cleocin 300 mg p.o. 3 times daily for 3 weeks when he goes home. He will not need a follow-up appointment to see me. Cold agglutinins are negative. Legionella titer has not been reported. 11/10/2016. This patient is doing fine his chest x-ray shows his infiltrates have resolved. He has no positive cultures for bacteria or AFB. I see nothing to make me think this is tuberculosis. I think we had infections with small air -fluid levels in his thin-walled bullae that are related to his emphysematous lung disease. See my note 11/09/2016 concerning my suggestions for discharge antibiotics. I think this patient could be discharged today from my standpoint. As I pointed out before he does not need a follow-up appointment to see me. I will sign off. Reconsult whenever in Labs been reviewed Medicines been reviewed Physical exam. Vital signs. See below Psychiatric. Not a reliable historian. Neurologic. Cranial nerves are intact. Long track motor functions intact Chest. Mild large airway congestion has resolved. No wheeze. Heart. No gallop Abdomen nondistended nontender positive bowel sounds Extremities none to suggest deep venous thrombophlebitis next lymphatics no submandibular cervical supraclavicular or epitrochlear adenopathy next neck. Symmetrical no meningismus Face symmetrical. No swelling of the lips and tongue. The remainder the exam is negative Plan. 11/07/2016 1. Levaquin. 2. Cleocin. 3. Induced sputum's for AFB. See orders 4. Sputum for Gram stain culture and sensitivity 5. Sputum for fungal stains and cultures. Look for aspergillosis. 6. Pro-calcitonin level. 7. Inhalation therapy 8. I agree with TB medicines 9. Follow-up lab and chest x-ray. 10. Discontinue QuantiFERON. This will not be helpful. 11. Dr. Martinez and I have discussed and reviewed the case and coordinated our care. 12. See orders. 11/08/2016. 1. See my note above. 2. Continue present therapy. I suspect this is going to insole lip turner to be a bacterial infection. 11/09/2016. 1. See my note above. 2. Discontinue INH 3. Discontinue rifampin 4. Should be ready for discharge in the near future. Suggest Levaquin 500 mg daily for 14 days and Cleocin 300 mg p.o. 3 times daily for 14 days. 5. This patient does not need a follow-up appointment to see me 11/10/2016. 1. See today's note above. 2. Okay to discharge from pulmonary standpoint 3. I will sign off. Reconsult when needed. 4. This patient does not need a follow-up appointment to see me Exam (Progress Note) - Constitutional Vitals: Period Temp Pulse Resp BP Sys/Bright Pulse Ox Last 24 Hr 97.4 F-98.2 F 74-95 18-23 101-124/63-88 93-97 Results - Labs CBC & BMP: 11/10/16 04:56 11/06/16 19:06
--- NOTE | 2016-11-10 07:43 | XRay Report ---
XR chest 1V portable Indication: Bullous emphysema. Comparison: Chest x-ray 11/27/2016 Technique: Portable AP chest was performed. Findings: The appearance of the right lung suggests little change from comparison study with lucency in the right lung apex compatible with large apical bullous disease. Paraseptal bulla additionally are suggested in the left lateral lung and parenchymal opacities in the mid to lower chest bilaterally remain present with little suggestive change. The chest is otherwise stable. Impression: 1. No adverse interval change in the chest is suggested. 11/10/2016 7:39 AM PROCEDURE INTERPRETED AT [facility] DEPARTMENT OF RADIOLOGY Final Report Signed by: Dr. Krishna Bhagat
[2016-11-10 08:16] VITALS: BP 127/79
[2016-11-10] MEDS: PANTOPRAZOLE 40 MG TABLET PO SCH (09:07)
[2016-11-10] MEDS: cefTRIAXone 1,000 MG in SODIUM CHLORIDE 0.9% 100 ML IV SCH (09:07)
--- NOTE | 2016-11-10 09:46 | Discharge Summary ---
Hospital Course - Hospital Course Hospital Course: This hospitalization included patient admitted for shortness of breath and cough. He had a chest x-ray as well as a CT of the chest that showed some chronic emphysematous changes as well as some granulomatous changes. It was at that time the patient was put in TB isolation and had 3 negative AFB stains. Moreover pulmonary was consulted for pneumonia recommended continued broad- spectrum antibiotics. The patient continued to improve. Oxygenation improved. He was able to be transferred to a regular floor. He was at that time that his TB medications were stopped. He was continued on his antibiotics for his pneumonia that would be needed for the next 3 weeks. The rest of his hospitalization is unremarkable. He has reached maximal hospitalization is prepared for discharge. He will follow with pulmonary in approximately 3 weeks. - Time spent with patient Time with patient DS: Greater than 30 minutes (35 minutes) Diagnosis - Discharge Diagnosis (1) Bullous emphysema Status: Chronic (2) Shortness of breath Status: Acute (3) Hypoxia Status: Resolved (4) Tobacco use Status: Chronic (5) Pneumonia Status: Acute Specialty Discharge - Follow Up or Referrals Follow up with: Delmer Matias MD [Physician] - Discharge Plan - Discharge Data Disposition: Disch To Home/Self Care Condition at Discharge: Stable Discharge Diet: advance to your usual diet Activity: resume usual activities as tolerated Contact your physician if you experience:: fever over 101 - Discharge Medications New Clindamycin Cap [Cleocin Cap] 300 mg PO Q6HR #84 capsule Levofloxacin Tab [Levaquin Tab] 500 mg PO DAILY #21 tablet Pantoprazole Tab [Protonix Tab] 40 mg PO DAILY #30 tablet Albuterol Inhaler [Proventil Inhaler] 2 puff INH Q4H PRN #1 inhaler PRN Reason: Shortness Of Breath/Wheezing - Follow Up or Referral Follow Up: Jerardo Montero MD [Physician] - - Forms/Instructions Additional Discharge Instructions: Follow with Dr. Montero on November 19. Follow with her primary provider in 1-2 weeks. Exam - Constitutional Vitals: Period Temp Pulse Resp BP Sys/Bright Pulse Ox Last 24 Hr 97.4 F-98.5 F 74-86 18-22 101-127/63-79 94-97 General appearance: normal weight - Head Head exam: Present: normal inspection - Eye Eye exam: Present: EOMI - ENT ENT exam: Present: normal exam - Neck Neck exam: Present: normal inspection - Respiratory Respiratory exam: Present: clear to auscultation bilaterally - Cardiovascular Cardiovascular exam: Present: regular rate and rhythm - GI/Abdominal GI/Abdominal exam: Present: normal bowel sounds - Extremities Exam Extremities exam: Present: normal inspection - Back Exam Back exam: Present: normal inspection - Neurological Exam Neurological exam: Present: alert, oriented X3, CN II-XII intact - Psychiatric Psychiatric exam: Present: normal affect - Skin Skin exam: Present: normal color Discharge Results Procedures and tests throughout hospitalization: Pending Orders 11/07/16 09:45 Legionella Ag, Urine Routine 11/07/16 10:18 Procalcitonin, S Routine 11/07/16 10:29 AFB Culture/Smears Routine Fungal Culture w/ Prep Routine Sputum Culture and Gram Stain Routine 11/07/16 15:28 Blood Culture Stat 11/07/16 17:54 AFB Culture/Smears Routine 11/08/16 08:20 AFB Culture/Smears Routine 11/09/16 09:53 AFB Culture/Smears Stat Labs on day of discharge: Labs from last 24 hours 11/10/16 04:56 WBC 11.4 RBC 5.29 Hgb 14.4 Hct 43.5 MCV 82.2 L MCH 27 MCHC 33.1 RDW 13.2 Plt Count 385 MPV 8.9 L Neut % (Auto) 61.4 Lymph % (Auto) 23.8 Webb % (Auto) 7.3 Eos % (Auto) 5.3 Baso % (Auto) 1.6 H Neut # (Auto) 7.0 Lymph # (Auto) 2.7 Webb # (Auto) 0.8 Eos # (Auto) 0.6 Baso # (Auto) 0.2 Immature Gran % 0.6 Nucleated RBC % 0.0 Immature Gran # 0.07 Nucleated RBCs # 0.00 Preliminary micro results at discharge 11/09/16 09:53 Direct Acid Fast Bacilli Smear - Preliminary Sputum - Expectorated No acid fast bacilli seen 11/07/16 10:29 Sputum Culture - Preliminary Sputum Yeast 11/07/16 15:28 Blood Culture - Preliminary Blood No growth at 1 day 11/07/16 15:28 Blood Culture - Preliminary Blood No growth at 1 day 11/08/16 08:20 Direct Acid Fast Bacilli Smear - Preliminary Sputum - Expectorated No acid fast bacilli seen 11/07/16 17:54 Direct Acid Fast Bacilli Smear - Preliminary Sputum - Expectorated No acid fast bacilli seen DS: Provider Date of admission: 11/06/16 19:56 Primary care physician: . Mariann PCP Attending physician on admission: Joe Martinez MD Consults: 11/06/16 21:02 Consult to Case Mgmt/Social Srvs [CONS] Routine Reason for Case Mgmt/Social Srvs: Other Consult Comment: requests info on advanced directive Consult to Dietitian [CONS] Routine Reason for Dietitian: Dietary Consult Consult to Physician [CONS] Routine Comment: pneumonia, bullae, ?TB Consulting Provider: Delmer Matias Discharging clinician: Wood Reina Jr., MD
[2016-11-10] MEDS: DICLOFENAC 1.3% PATCH 5/PACK TRANSDERM SCH (10:37)
[2016-11-10] MEDS: LEVOFLOXACIN INJ 500 MG in PREMIX 1 EACH IV SCH (10:37)
== END 2016-11-10 12:02 | disposition home or self-care (01) | DRG 190 ==
LOC: N.ED 16:59 → SUATTDRO 19:56 → N.ICU 19:56 → N.5E 11-09 12:39
PROVIDERS: ADMIT Internal Medicine; ATTEND Internal Medicine Nephrology

== ENCOUNTER 2018-07-28 11:36 | Inpatient (IN) ==
[2018-07-28 13:01] LABS: Basophils # 0.1 10*3/uL (0.0-0.2); Eosinophils # 0.1 10*3/uL (0.0-0.87); Eosinophils % 1.5 % (0.00-10.9); Hematocrit 49.3 VOL% (42.0-52.0); Hemoglobin 15.9 GM/DL (14.0-18.0); Immature Granulocytes % 0.6 %; Immature Granulocytes Absolute 0.05 #; Lymphocytes # 1.8 10*3/uL (1.4-4.0); Lymphocytes % 20.2 % (21.2-54.2); Mean Corpuscular HGB Conc 32.3 GM/DL (32-36); Mean Corpuscular Hemoglobin 27 PG (27-34); Monocytes # 0.9 10*3/uL (0.11-0.8); Monocytes % 9.8 % (1.7-12.7); Neutrophils # 6.1 10*3/uL (1.4-7.4); Neutrophils % 66.9 % (38.7-73.9); Platelet Count 236 T/CUMM (130-400); Red Cell Distribution Width 13.7 % (9.3-17.3); White Blood Count 9.1 T/CUMM (4-12)
[2018-07-28 13:05] LABS: PT Patient Result 11.3 SECS
[2018-07-28 13:08] LABS: Alanine Aminotransferase 21 U/L (16-61); Albumin 3.3 G/DL (3.4-5.0); Alkaline Phosphatase 74 U/L (45-117); Aspartate Amino Transferase 21 U/L (0-37); Blood Urea Nitrogen 8 MG/DL (7-18); Calcium 8.4 MG/DL (8.5-10.1); Glucose 116 MG/DL (74-106); Osmolality,Calculated 271.8 MOS/KG (273-304); Potassium 3.1 MMOL/L (3.5-5.1); Sodium 137 MMOL/L (136-145); Total Protein 8.3 G/DL (6.4-8.3)
[2018-07-28 13:46] LABS: Apearance,Urine CLEAR (Clear); Bilirubin,Urine Negative (Negative); Blood, Urine Negative (Negative); Glucose,Urine (UA) Negative (Negative); Ketones,Urine Negative (Negative); Mucus,Urine Occasional /LPF (Occasional); Nitrite,Urine Negative (Negative); Protein,Urine Negative; RBC,Urine 3 /HPF (0-4); Squamous Epithelial Cell,Urine Occasional /HPF (0-10); Urine Color Yellow (Yellow); Urine Specific Gravity 1.009 (1.001-1.035); WBC,Urine 7 /HPF (0-6)
[2018-07-28] MEDS ORDERED: ACETAMINOPHEN 325 MG TABLET PO PRN (15:15)
[2018-07-28] MEDS ORDERED: LABETALOL 20 MG/4 ML SYRINGE IV PRN (15:18)
[2018-07-28] MEDS ORDERED: ALBUTEROL 2.5 MG/3 ML NEB RESP TX PRN (15:25)
[2018-07-28] MEDS ORDERED: ALBUTEROL/IPRATROPIUM 3 ML NEB RESP TX PRN (15:26)
[2018-07-28] MEDS ORDERED: SODIUM CHLORIDE 0.9% 1,000 ML IV SCH (15:30)
[2018-07-28 16:14] LABS: Barbiturates Screen,Urine Negative (Negative); Benzodiazepines Screen,Urine Negative (Negative); Cannabinoid Screen,Urine Negative (Negative); Opiate Screen,Urine Negative (Negative); Phencyclidine Screen,Urine Negative (Negative)
[2018-07-28] MEDS ORDERED: POTASSIUM CHLORIDE 20 MEQ TABLET PO PRN (17:52)
[2018-07-28] MEDS: ASPIRIN 325 MG TABLET PO SCH (18:20)
[2018-07-28] MEDS: ENOXAPARIN 40 MG/0.4 ML SYRINGE SUBCUT SCH (20:57)
[2018-07-28] MEDS: ATORVASTATIN 40 MG TABLET PO SCH (20:57)
[2018-07-29 05:08] LABS: Basophils # 0.1 10*3/uL (0.0-0.2); Basophils % 0.6 % (0.0-0.8); Eosinophils # 0.3 10*3/uL (0.0-0.87); Eosinophils % 3.2 % (0.00-10.9); Hematocrit 48.1 VOL% (42.0-52.0); Hemoglobin 15.6 GM/DL (14.0-18.0); Immature Granulocytes % 0.4 %; Immature Granulocytes Absolute 0.04 #; Lymphocytes # 1.6 10*3/uL (1.4-4.0); Mean Corpuscular HGB Conc 32.4 GM/DL (32-36); Mean Corpuscular Hemoglobin 28 PG (27-34); Mean Corpuscular Volume 84.8 FL (87-102); Mean Platelet Volume 9.1 FL (9.6-12.0); Monocytes # 0.7 10*3/uL (0.11-0.8); Monocytes % 6.6 % (1.7-12.7); Neutrophils # 7.4 10*3/uL (1.4-7.4); Neutrophils % 73.2 % (38.7-73.9); Platelet Count 210 T/CUMM (130-400); Red Blood Count 5.67 MC/CUMM (3.8-5.5); Red Cell Distribution Width 13.6 % (9.3-17.3)
[2018-07-29 05:46] LABS: Calcium 8.6 MG/DL (8.5-10.1); Osmolality,Calculated 272.7 MOS/KG (273-304); Potassium 3.3 MMOL/L (3.5-5.1)
[2018-07-29] MEDS ORDERED: POTASSIUM CHLORIDE 20 MEQ TABLET PO ONE (08:50)
[2018-07-29] MEDS: cefTRIAXone 1,000 MG in SYRINGE 1 EACH IV SCH (09:21)
[2018-07-29] MEDS: ONDANSETRON 4 MG/2 ML VIAL IV PRN (09:28)
[2018-07-29] MEDS: ASPIRIN 325 MG TABLET PO SCH (13:17)
[2018-07-29] MEDS: ENOXAPARIN 40 MG/0.4 ML SYRINGE SUBCUT SCH (20:46)
[2018-07-29] MEDS: ATORVASTATIN 40 MG TABLET PO SCH (20:46)
[2018-07-30 08:09] LABS: Basophils # 0.1 10*3/uL (0.0-0.2); Basophils % 0.9 % (0.0-0.8); Eosinophils # 0.4 10*3/uL (0.0-0.87); Hematocrit 48.1 VOL% (42.0-52.0); Hemoglobin 15.5 GM/DL (14.0-18.0); Immature Granulocytes % 0.2 %; Immature Granulocytes Absolute 0.02 #; Lymphocytes # 2.6 10*3/uL (1.4-4.0); Lymphocytes % 29.1 % (21.2-54.2); Mean Corpuscular HGB Conc 32.2 GM/DL (32-36); Mean Corpuscular Hemoglobin 28 PG (27-34); Mean Corpuscular Volume 85.6 FL (87-102); Mean Platelet Volume 9.8 FL (9.6-12.0); Monocytes # 0.8 10*3/uL (0.11-0.8); Monocytes % 8.6 % (1.7-12.7); Neutrophils % 57.2 % (38.7-73.9); Platelet Count 226 T/CUMM (130-400); Red Blood Count 5.62 MC/CUMM (3.8-5.5); Red Cell Distribution Width 13.7 % (9.3-17.3); White Blood Count 8.8 T/CUMM (4-12)
[2018-07-30 08:37] LABS: Calcium 8.5 MG/DL (8.5-10.1); Osmolality,Calculated 273.7 MOS/KG (273-304); Potassium 3.6 MMOL/L (3.5-5.1)
[2018-07-30] MEDS: ASPIRIN 325 MG TABLET PO SCH (08:38)
[2018-07-30] MEDS: cefTRIAXone 1,000 MG in SYRINGE 1 EACH IV SCH (08:38)
[2018-07-30] MEDS: ONDANSETRON 4 MG/2 ML VIAL IV PRN (08:46)
[2018-07-30 11:43] VITALS: BP 142/97
== END 2018-07-30 14:55 | disposition home or self-care (01) | DRG 65 ==
LOC: N.ED 11:36 → N.EDINP 15:15 → N.4E 17:55
PROVIDERS: ADMIT Internal Medicine; ATTEND Internal Medicine

== ENCOUNTER 2019-12-18 09:01 | Inpatient (IN) ==
[2019-12-18 10:57] LABS: Basophils # 0.1 10*3/uL (0.0-0.2); Basophils % 1.1 % (0.0-0.8); Eosinophils % 0.2 % (0.00-10.9); Hematocrit 47.5 VOL% (42.0-52.0); Hemoglobin 15.7 GM/DL (14.0-18.0); Immature Granulocytes % 0.4 %; Immature Granulocytes Absolute 0.04 #; Lymphocytes # 1.7 10*3/uL (1.4-4.0); Lymphocytes % 16.5 % (21.2-54.2); Mean Corpuscular HGB Conc 33.1 GM/DL (32-36); Mean Corpuscular Volume 85.1 FL (87-102); Mean Platelet Volume 9.4 FL (9.6-12.0); Monocytes % 14.2 % (1.7-12.7); Neutrophils % 67.6 % (38.7-73.9); Platelet Count 198 T/CUMM (130-400); Red Blood Count 5.58 MC/CUMM (3.8-5.5); Red Cell Distribution Width 13.2 % (9.3-17.3)
[2019-12-18 11:10] LABS: INR 1.2; PT Patient Result 12.4 SECS (9.8-11.9)
[2019-12-18] MEDS ORDERED: cefTRIAXone 1,000 MG in SODIUM CHLORIDE 0.9% 100 ML IV STA (11:15)
[2019-12-18 11:24] LABS: Albumin 3.3 G/DL (3.4-5.0); Bilirubin,Total 1.1 MG/DL (0.2-1.0); Calcium 8.8 MG/DL (8.5-10.1); Ferritin 418.9 ng/ml (26-388); Osmolality,Calculated 263.4 MOS/KG (273-304); Total Protein 8.2 G/DL (6.4-8.3)
[2019-12-18] MEDS ORDERED: GLUCAGON 1 MG VIAL IM PRN (12:37)
[2019-12-18] MEDS ORDERED: DEXTROSE 50% 25 GM/50 ML VIAL IV PRN (12:37)
[2019-12-18] MEDS ORDERED: ACETAMINOPHEN/CODEINE 300-30 MG TABLET PO PRN (13:01)
[2019-12-18] MEDS ORDERED: NON-FORMULARY MEDICATION (Albuterol Sulfate [Proair Hfa] 2 PUFF) INH PRN (13:01)
[2019-12-18] MEDS ORDERED: AZITHROMYCIN 250 MG TABLET PO SCH (14:00)
[2019-12-18] MEDS ORDERED: DEXAMETHASONE 4 MG TABLET PO SCH (14:00)
[2019-12-18] MEDS: ENOXAPARIN 40 MG/0.4 ML SYRINGE SUBCUT SCH (14:54)
[2019-12-19 04:29] LABS: Basophils % 0.4 % (0.0-0.8); Hematocrit 48.3 VOL% (42.0-52.0); Hemoglobin 16.3 GM/DL (14.0-18.0); Immature Granulocytes % 0.3 %; Immature Granulocytes Absolute 0.03 #; Lymphocytes # 1.3 10*3/uL (1.4-4.0); Lymphocytes % 15.1 % (21.2-54.2); Mean Corpuscular HGB Conc 33.7 GM/DL (32-36); Mean Corpuscular Volume 84.7 FL (87-102); Mean Platelet Volume 9.6 FL (9.6-12.0); Monocytes % 5.4 % (1.7-12.7); Neutrophils % 78.8 % (38.7-73.9); Platelet Count 212 T/CUMM (130-400); Red Cell Distribution Width 13.1 % (9.3-17.3); White Blood Count 8.9 T/CUMM (4-12)
[2019-12-19 04:47] LABS: Albumin 3.2 G/DL (3.4-5.0); Bilirubin,Total 0.6 MG/DL (0.2-1.0); Calcium 9.5 MG/DL (8.5-10.1); Ferritin 462.6 ng/ml (26-388); Osmolality,Calculated 273.1 MOS/KG (273-304); Total Protein 8.5 G/DL (6.4-8.3)
[2019-12-19] MEDS: ASPIRIN EC 325 MG TABLET PO SCH (08:45)
[2019-12-19] MEDS: amLODIPine 5 MG TABLET PO SCH (08:45)
[2019-12-19] MEDS: DEXAMETHASONE 4 MG/1 ML VIAL IV SCH (08:45)
[2019-12-19] MEDS: AZITHROMYCIN 250 MG TABLET PO SCH (08:45)
[2019-12-19] MEDS: ATORVASTATIN 40 MG TABLET PO SCH (08:45)
[2019-12-19] MEDS: ALBUTEROL INHALER 18 GM INH SCH ×3 (08:45→19:08)
[2019-12-19] MEDS ORDERED: cefTRIAXone 1,000 MG in SODIUM CHLORIDE 0.9% 100 ML IV SCH (13:11)
[2019-12-19] MEDS ORDERED: REMDESIVIR 200 MG in SODIUM CHLORIDE 0.9% 210 ML IV ONE (17:00)
[2019-12-19] MEDS: ENOXAPARIN 40 MG/0.4 ML SYRINGE SUBCUT SCH (17:15)
[2019-12-20] MEDS: ALBUTEROL INHALER 18 GM INH SCH ×6 (01:08→18:03)
[2019-12-20 05:24] LABS: Calcium 8.9 MG/DL (8.5-10.1); Osmolality,Calculated 274.8 MOS/KG (273-304)
[2019-12-20] MEDS: amLODIPine 5 MG TABLET PO SCH (08:41)
[2019-12-20] MEDS: ATORVASTATIN 40 MG TABLET PO SCH (08:42)
[2019-12-20] MEDS: AZITHROMYCIN 250 MG TABLET PO SCH (08:42)
[2019-12-20] MEDS: ASPIRIN EC 325 MG TABLET PO SCH (08:42)
[2019-12-20] MEDS: ZINC GLUCONATE 50 MG TABLET PO SCH (08:42)
[2019-12-20] MEDS: ACETAMINOPHEN 325 MG TABLET PO PRN ×2 (11:45→21:45)
[2019-12-20] MEDS: DEXAMETHASONE 4 MG/1 ML VIAL IV SCH (11:48)
[2019-12-20] MEDS: ENOXAPARIN 40 MG/0.4 ML SYRINGE SUBCUT SCH (11:49)
[2019-12-20] MEDS: REMDESIVIR 100 MG in SODIUM CHLORIDE 0.9% 230 ML IV SCH (16:28)
[2019-12-21] MEDS: ALBUTEROL INHALER 18 GM INH SCH ×4 (00:40→18:09)
[2019-12-21 06:35] LABS: Basophils % 0.1 % (0.0-0.8); Hematocrit 49.6 VOL% (42.0-52.0); Hemoglobin 16.2 GM/DL (14.0-18.0); Immature Granulocytes % 0.2 %; Immature Granulocytes Absolute 0.02 #; Lymphocytes # 1.6 10*3/uL (1.4-4.0); Lymphocytes % 17.7 % (21.2-54.2); Mean Corpuscular HGB Conc 32.7 GM/DL (32-36); Mean Corpuscular Volume 85.2 FL (87-102); Mean Platelet Volume 10.2 FL (9.6-12.0); Platelet Count 228 T/CUMM (130-400); Red Blood Count 5.82 MC/CUMM (3.8-5.5); White Blood Count 8.9 T/CUMM (4-12)
[2019-12-21 06:57] LABS: Calcium 9.2 MG/DL (8.5-10.1)
[2019-12-21 07:14] LABS: Albumin 3.1 G/DL (3.4-5.0); Bilirubin,Total 0.7 MG/DL (0.2-1.0); Calcium 9.2 MG/DL (8.5-10.1); Osmolality,Calculated 275.7 MOS/KG (273-304); Total Protein 7.8 G/DL (6.4-8.3)
[2019-12-21] MEDS: ASPIRIN EC 325 MG TABLET PO SCH (08:12)
[2019-12-21] MEDS: ATORVASTATIN 40 MG TABLET PO SCH (08:12)
[2019-12-21] MEDS: ACETAMINOPHEN 325 MG TABLET PO PRN ×2 (08:13→18:10)
[2019-12-21] MEDS: AZITHROMYCIN 250 MG TABLET PO SCH (08:13)
[2019-12-21] MEDS: ZINC GLUCONATE 50 MG TABLET PO SCH (08:13)
[2019-12-21] MEDS: amLODIPine 5 MG TABLET PO SCH (08:13)
[2019-12-21] MEDS: DEXAMETHASONE 4 MG/1 ML VIAL IV SCH (08:14)
[2019-12-21] MEDS: ENOXAPARIN 40 MG/0.4 ML SYRINGE SUBCUT SCH (08:14)
[2019-12-21] MEDS ORDERED: cefTRIAXone 1,000 MG in SYRINGE 1 EACH IV SCH (09:00)
[2019-12-21] MEDS: REMDESIVIR 100 MG in SODIUM CHLORIDE 0.9% 230 ML IV SCH (21:40)
[2019-12-22] MEDS: ALBUTEROL INHALER 18 GM INH SCH ×4 (00:56→18:26)
[2019-12-22 07:10] LABS: Bilirubin,Total 0.5 MG/DL (0.2-1.0); Calcium 9.2 MG/DL (8.5-10.1); Osmolality,Calculated 272.8 MOS/KG (273-304); Total Protein 8.2 G/DL (6.4-8.3)
[2019-12-22] MEDS: ZINC GLUCONATE 50 MG TABLET PO SCH (08:20)
[2019-12-22] MEDS: ATORVASTATIN 40 MG TABLET PO SCH (08:20)
[2019-12-22] MEDS: ASPIRIN EC 325 MG TABLET PO SCH (08:20)
[2019-12-22] MEDS: DEXAMETHASONE 4 MG/1 ML VIAL IV SCH (08:21)
[2019-12-22] MEDS: amLODIPine 5 MG TABLET PO SCH (08:21)
[2019-12-22] MEDS: AZITHROMYCIN 250 MG TABLET PO SCH (08:21)
[2019-12-22] MEDS: ENOXAPARIN 40 MG/0.4 ML SYRINGE SUBCUT SCH (08:21)
[2019-12-22] MEDS ORDERED: CARBOXYMETHYLCELLULOSE 1% OPH SOLN BOTH EYES PRN (09:05)
[2019-12-22] MEDS ORDERED: guaiFENesin/DM ER 600-30 MG TABLET PO PRN (09:08)
[2019-12-22] MEDS: REMDESIVIR 100 MG in SODIUM CHLORIDE 0.9% 230 ML IV SCH (21:27)
[2019-12-23] MEDS: ALBUTEROL INHALER 18 GM INH SCH ×2 (00:36→06:34)
[2019-12-23 06:07] LABS: Basophils % 0.2 % (0.0-0.8); Hematocrit 51.3 VOL% (42.0-52.0); Hemoglobin 16.9 GM/DL (14.0-18.0); Immature Granulocytes % 0.4 %; Immature Granulocytes Absolute 0.05 #; Lymphocytes # 2.5 10*3/uL (1.4-4.0); Lymphocytes % 20.2 % (21.2-54.2); Mean Corpuscular HGB Conc 32.9 GM/DL (32-36); Mean Corpuscular Volume 85.1 FL (87-102); Mean Platelet Volume 10.2 FL (9.6-12.0); Neutrophils % 70.2 % (38.7-73.9); Platelet Count 234 T/CUMM (130-400); Red Blood Count 6.03 MC/CUMM (3.8-5.5); Red Cell Distribution Width 12.9 % (9.3-17.3); White Blood Count 12.5 T/CUMM (4-12)
[2019-12-23 06:41] LABS: Bilirubin,Total 0.4 MG/DL (0.2-1.0); Calcium 9.2 MG/DL (8.5-10.1); Total Protein 8.2 G/DL (6.4-8.3)
[2019-12-23 08:01] VITALS: BP 107/71
[2019-12-23] MEDS: ASPIRIN EC 325 MG TABLET PO SCH (09:07)
[2019-12-23] MEDS: ZINC GLUCONATE 50 MG TABLET PO SCH (09:08)
[2019-12-23] MEDS: ENOXAPARIN 40 MG/0.4 ML SYRINGE SUBCUT SCH (09:08)
[2019-12-23] MEDS: DEXAMETHASONE 4 MG/1 ML VIAL IV SCH (09:08)
[2019-12-23] MEDS: ATORVASTATIN 40 MG TABLET PO SCH (09:08)
[2019-12-23] MEDS: amLODIPine 5 MG TABLET PO SCH (09:08)
[2019-12-23] MEDS: REMDESIVIR 100 MG in SODIUM CHLORIDE 0.9% 230 ML IV SCH (10:08)
== END 2019-12-23 11:35 | disposition home or self-care (01) | DRG 137 ==
LOC: N.ED 09:01 → SUATTDRO 12:37 → N.EDINP 12:37 → N.2E 12-20 07:17
PROVIDERS: ADMIT Internal Medicine Critical Care Medicine; ATTEND Family Medicine

== ENCOUNTER 2022-03-30 15:55 | Inpatient (IN) ==
[2022-03-30] MEDS ORDERED: methylPREDNISolone SOD SUC 125 MG/2 ML VIAL IV STA (16:37)
[2022-03-30] MEDS ORDERED: cefTRIAXone 1,000 MG in SODIUM CHLORIDE 0.9% 100 ML IV STA (16:37)
[2022-03-30 16:49] LABS: Basophils # 0.2 10*3/uL (0.0-0.2); Basophils % 1.3 % (0.0-0.8); Eosinophils # 0.5 10*3/uL (0.0-0.87); Eosinophils % 4.3 % (0.00-10.9); Hematocrit 50.9 VOL% (42.0-52.0); Hemoglobin 16.3 GM/DL (14.0-18.0); Immature Granulocytes % 0.6 %; Immature Granulocytes Absolute 0.07 #; Lymphocytes # 4.5 10*3/uL (1.4-4.0); Lymphocytes % 36.2 % (21.2-54.2); Mean Corpuscular Volume 86.1 FL (87-102); Monocytes # 0.9 10*3/uL (0.11-0.8); Monocytes % 7.1 % (1.7-12.7); Neutrophils % 50.5 % (38.7-73.9); Platelet Count 301 T/CUMM (130-400); Red Blood Count 5.91 MC/CUMM (3.8-5.5); Red Cell Distribution Width 14.3 % (9.3-17.3); White Blood Count 12.6 T/CUMM (4-12)
[2022-03-30 17:00] LABS: Albumin 3.5 G/DL (3.4-5.0); Bilirubin,Total 0.6 MG/DL (0.20-1.00); Calcium 9.2 MG/DL (8.5-10.1); Osmolality,Calculated 276.5 MOS/KG (273-304); Potassium 3.4 MMOL/L (3.5-5.1); Total Protein 8.3 G/DL (6.4-8.2)
[2022-03-30] MEDS ORDERED: ALBUTEROL NEB SOLN 5 MG/ML 20 ML/BOTTLE CONT NEB SCH (17:00)
[2022-03-30] MEDS ORDERED: ONDANSETRON 4 MG/2 ML VIAL IV PRN (17:51)
[2022-03-30] MEDS ORDERED: ACETAMINOPHEN 325 MG TABLET PO PRN (17:51)
[2022-03-30 17:58] LABS: ABG HCO3 24.5 MMOL/L (20-26); ABG Oxygen Saturation 98.8 % (95-100); ABG PCO2 40.6 MM HG (35-48); ABG PH 7.395 (7.35-7.45); ABG TCO2 20.8 MMOL/L (23-27)
[2022-03-30] MEDS: SODIUM CHLORIDE 0.9% 1,000 ML IV SCH (18:27)
[2022-03-30] MEDS: ALBUTEROL/IPRATROPIUM 3 ML NEB RESP TX SCH ×2 (18:45→23:54)
[2022-03-30] MEDS: ENOXAPARIN 40 MG/0.4 ML SYRINGE SUBCUT SCH (21:21)
[2022-03-30] MEDS: PREGABALIN 50 MG CAPSULE PO SCH (21:21)
[2022-03-30] MEDS: TAMSULOSIN 0.4 MG CAPSULE PO SCH (21:21)
[2022-03-31] MEDS: methylPREDNISolone SOD SUC 40 MG/1 ML VIAL IV SCH ×3 (01:18→17:28)
[2022-03-31 06:00] LABS: Basophils % 0.1 % (0.0-0.8); Hematocrit 49.6 VOL% (42.0-52.0); Hemoglobin 15.6 GM/DL (14.0-18.0); Immature Granulocytes % 0.4 %; Immature Granulocytes Absolute 0.05 #; Lymphocytes % 9.3 % (21.2-54.2); Mean Corpuscular HGB Conc 31.5 GM/DL (32-36); Mean Corpuscular Volume 87.3 FL (87-102); Mean Platelet Volume 10.2 FL (9.6-12.0); Monocytes # 0.2 10*3/uL (0.11-0.8); Monocytes % 1.7 % (1.7-12.7); Neutrophils % 88.5 % (38.7-73.9); Platelet Count 291 T/CUMM (130-400); Red Blood Count 5.68 MC/CUMM (3.8-5.5); Red Cell Distribution Width 14.3 % (9.3-17.3); White Blood Count 11.2 T/CUMM (4-12)
[2022-03-31 06:11] LABS: Calcium 9.7 MG/DL (8.5-10.1); Osmolality,Calculated 285.5 MOS/KG (273-304); Potassium 4.4 MMOL/L (3.5-5.1)
[2022-03-31] MEDS: ALBUTEROL/IPRATROPIUM 3 ML NEB RESP TX SCH ×3 (07:30→19:30)
[2022-03-31] MEDS ORDERED: ATORVASTATIN 40 MG TABLET PO SCH (09:00)
[2022-03-31] MEDS: AZITHROMYCIN 250 MG TABLET PO SCH (10:01)
[2022-03-31] MEDS: ASPIRIN EC 325 MG TABLET PO SCH (10:01)
[2022-03-31] MEDS: PANTOPRAZOLE 40 MG TABLET PO SCH (10:01)
[2022-03-31] MEDS: MONTELUKAST 10 MG TABLET PO SCH (10:01)
[2022-03-31] MEDS: SODIUM CHLORIDE 0.9% 1,000 ML IV SCH (10:05)
[2022-03-31] MEDS: PREGABALIN 50 MG CAPSULE PO SCH (20:24)
[2022-03-31] MEDS: TAMSULOSIN 0.4 MG CAPSULE PO SCH (20:24)
[2022-03-31] MEDS: ENOXAPARIN 40 MG/0.4 ML SYRINGE SUBCUT SCH (20:24)
[2022-04-01] MEDS: ALBUTEROL/IPRATROPIUM 3 ML NEB RESP TX SCH ×4 (00:30→20:05)
[2022-04-01] MEDS: methylPREDNISolone SOD SUC 40 MG/1 ML VIAL IV SCH ×3 (01:22→17:07)
[2022-04-01] MEDS: SODIUM CHLORIDE 0.9% 1,000 ML IV SCH ×2 (01:22→15:57)
[2022-04-01] MEDS: ASPIRIN EC 325 MG TABLET PO SCH (09:22)
[2022-04-01] MEDS: PANTOPRAZOLE 40 MG TABLET PO SCH (09:22)
[2022-04-01] MEDS: MONTELUKAST 10 MG TABLET PO SCH ×3 (09:22→20:58)
[2022-04-01] MEDS: AZITHROMYCIN 250 MG TABLET PO SCH (09:22)
[2022-04-01] MEDS: cefTRIAXone 1,000 MG in SODIUM CHLORIDE 0.9% 100 ML IV SCH (09:45)
[2022-04-01] MEDS: BENZONATATE 100 MG CAPSULE PO SCH ×2 (13:08→20:57)
[2022-04-01] MEDS: ALBUTEROL 2 MG TABLET PO SCH ×2 (13:10→21:02)
[2022-04-01] MEDS: ALUMINUM/MAGNES/SIMETH MAX STR 30 ML UDCUP PO SCH ×2 (17:07→21:06)
[2022-04-01] MEDS: TAMSULOSIN 0.4 MG CAPSULE PO SCH (20:58)
[2022-04-01] MEDS: ENOXAPARIN 40 MG/0.4 ML SYRINGE SUBCUT SCH (20:59)
[2022-04-01] MEDS ORDERED: ATORVASTATIN 40 MG TABLET PO SCH (21:00)
[2022-04-02] MEDS: ALBUTEROL/IPRATROPIUM 3 ML NEB RESP TX SCH ×3 (00:03→13:23)
[2022-04-02] MEDS: methylPREDNISolone SOD SUC 40 MG/1 ML VIAL IV SCH ×2 (00:25→09:24)
[2022-04-02] MEDS: SODIUM CHLORIDE 0.9% 1,000 ML IV SCH (03:36)
[2022-04-02] MEDS: BENZONATATE 100 MG CAPSULE PO SCH ×2 (03:36→11:30)
[2022-04-02 04:49] LABS: Basophils % 0.1 % (0.0-0.8); Hematocrit 46.5 VOL% (42.0-52.0); Hemoglobin 14.7 GM/DL (14.0-18.0); Immature Granulocytes % 1.3 %; Immature Granulocytes Absolute 0.27 #; Lymphocytes % 4.9 % (21.2-54.2); Mean Corpuscular HGB Conc 31.6 GM/DL (32-36); Mean Corpuscular Volume 87.6 FL (87-102); Mean Platelet Volume 9.8 FL (9.6-12.0); Monocytes # 0.7 10*3/uL (0.11-0.8); Monocytes % 3.3 % (1.7-12.7); Neutrophils % 90.4 % (38.7-73.9); Platelet Count 282 T/CUMM (130-400); Red Blood Count 5.31 MC/CUMM (3.8-5.5); Red Cell Distribution Width 14.6 % (9.3-17.3); White Blood Count 20.4 T/CUMM (4-12)
[2022-04-02 05:13] LABS: Albumin 3.2 G/DL (3.4-5.0); Bilirubin,Total 0.4 MG/DL (0.20-1.00); Osmolality,Calculated 285.4 MOS/KG (273-304); Potassium 3.7 MMOL/L (3.5-5.1); Total Protein 7.5 G/DL (6.4-8.2)
[2022-04-02] MEDS: ALBUTEROL 2 MG TABLET PO SCH (05:17)
[2022-04-02 05:21] LABS: Lymphocytes 3 % (20-55); Platelet Estimate Normal; Total Cells Counted 100
[2022-04-02] MEDS: AZITHROMYCIN 250 MG TABLET PO SCH (09:23)
[2022-04-02] MEDS: MONTELUKAST 10 MG TABLET PO SCH (09:23)
[2022-04-02] MEDS: ASPIRIN EC 325 MG TABLET PO SCH (09:23)
[2022-04-02] MEDS: cefTRIAXone 1,000 MG in SODIUM CHLORIDE 0.9% 100 ML IV SCH (09:24)
[2022-04-02] MEDS: PANTOPRAZOLE 40 MG TABLET PO SCH (09:24)
[2022-04-02 11:41] VITALS: BP 144/76
== END 2022-04-02 13:32 | disposition home or self-care (01) | DRG 190 ==
LOC: N.ED 15:55 → N.EDINP 17:51 → N.5E 21:12
PROVIDERS: ADMIT Family Medicine; ATTEND Family Medicine